=== PATIENT | female | born 1975 | race Caucasian/White ===

== ENCOUNTER → 2018-03-07 09:51 | Outpatient (CLI) | payer OTHER, SELFPAY ==
[2018-03-07 11:42] LABS: Free T4, Direct Thyroxine 1.46 ng/dL (0.78-2.19)
[2018-03-07 11:56] LABS: Thyroid Stimulating Hormone < 0.02 uIU/mL (0.47-4.68)
== END ==
PROVIDERS: Family Provider Family Medicine; PCP Family Medicine; Visit Provider Obstetrics & Gynecology
DX: E03.9 Hypothyroidism, unspecified (principal)
CPT/HCPCS: 36415; 84439; 84443

== ENCOUNTER → 2018-03-16 14:22 | Outpatient (CLI) | payer OTHER, SELFPAY ==
[2018-03-16 15:44] LABS: Cancer Antigen 125 7 U/mL (0-35)
== END ==
PROVIDERS: Family Provider Family Medicine; PCP Family Medicine; Visit Provider Obstetrics & Gynecology
DX: N83.9 Noninflammatory disorder of ovary, fallopian tube and broad ligament, unspecified (principal)
CPT/HCPCS: 36415; 86304

== ENCOUNTER → 2018-04-04 14:46 | Outpatient (CLI) | payer OTHER, SELFPAY ==
--- NOTE | 2018-04-04 14:47 | DI.MG.S_ITS ---
BILATERAL DIGITAL SCREENING MAMMOGRAM 3D/2D WITH CAD: 04/04/2018 CLINICAL: Routine screening. Comparison is made to exams dated: 09/26/2013 mammogram and 09/20/2013 mammogram - [facility]. The tissue of both breasts is extremely dense, which lowers the sensitivity of mammography. Current study was also evaluated with a Computer Aided Detection (CAD) system. No significant masses, calcifications, or other findings are seen in either breast. There has been no significant interval change. IMPRESSION: NEGATIVE There is no mammographic evidence of malignancy. A 1 year screening mammogram is recommended. This exam was interpreted at Station ID: [id number]. NOTE: For mammograms, a report in lay terms will be sent to the patient. Approximately 15% of breast malignancies will not be visualized mammographically. In the management of a palpable breast mass, a negative mammogram must not discourage biopsy of a clinically suspicious lesion. Electronically Signed By: Mehdi urias/imer:04/04/2018 18:43:47 letter sent: Normal Exam ACR BI-RADS Category 1: Negative 3341F
== END ==
PROVIDERS: Family Provider Family Medicine; PCP Family Medicine; Visit Provider Obstetrics & Gynecology
DX: Z12.31 Encounter for screening mammogram for malignant neoplasm of breast (principal)
CPT/HCPCS: 77063; 77067

== ENCOUNTER → 2018-09-22 15:06 | Outpatient (CLI) | payer OTHER, SELFPAY ==
[2018-09-24 13:57] LABS: HSV 1 IgM Screen Negative (Negative); HSV 2 IgM Screen Negative (Negative)
[2018-09-24 14:11] LABS: HSV 2 IGG AB < 0.90 index (< 0.90); HSV1IGG < 0.90 index (< 0.90)
== END ==
PROVIDERS: PCP Family Medicine; Visit Provider Obstetrics & Gynecology
DX: N90.89 Other specified noninflammatory disorders of vulva and perineum (principal)
CPT/HCPCS: 36415; 86695; 86696

== ENCOUNTER → 2018-10-11 15:24 | Outpatient (CLI) | payer OTHER, SELFPAY ==
[2018-10-14 08:32] LABS: HSV 2 IGG AB < 0.90 index (< 0.90)
[2018-10-14 14:53] LABS: HSV 1 IgM Screen Positive (Negative); HSV 2 IgM Screen Positive (Negative)
== END ==
PROVIDERS: PCP Family Medicine; Visit Provider Obstetrics & Gynecology
DX: N90.89 Other specified noninflammatory disorders of vulva and perineum (principal)
CPT/HCPCS: 36415; 86695; 86696

== ENCOUNTER → 2019-05-19 15:06 | Outpatient (CLI) | payer OTHER, SELFPAY ==
--- NOTE | 2019-05-19 | DI.MG.S_ITS ---
BILATERAL DIGITAL SCREENING MAMMOGRAM 3D/2D WITH CAD: 05/19/2019 CLINICAL: Routine screening. Comparison is made to exams dated: 04/04/2018 mammogram, 09/26/2013 mammogram, and 09/20/2013 mammogram - [facility]. The tissue of both breasts is extremely dense, which lowers the sensitivity of mammography. Current study was also evaluated with a Computer Aided Detection (CAD) system. There is a biopsy site marker on the left breast. There is a possible 1 cm oval asymmetry in the right breast middle depth central to the nipple seen on the craniocaudal view only. No other significant masses, calcifications, or other findings are seen in either breast. IMPRESSION: INCOMPLETE: NEEDS ADDITIONAL IMAGING EVALUATION The possible 1 cm asymmetry in the right breast is indeterminate. Additional views with possible ultrasound are recommended. This exam was interpreted at Station ID: [id number]. NOTE: For mammograms, a report in lay terms will be sent to the patient. Approximately 15% of breast malignancies will not be visualized mammographically. In the management of a palpable breast mass, a negative mammogram must not discourage biopsy of a clinically suspicious lesion. Electronically Signed By: Cyrus Madison M.D. aty/:05/19/2019 18:31:21 letter sent: Additional Imaging Needed ACR BI-RADS Category 0: Incomplete 3340F
[2019-05-19 17:29] LABS: Free T4, Direct Thyroxine 1.19 ng/dL (0.78-2.19)
[2019-05-19 17:43] LABS: Thyroid Stimulating Hormone 0.06 uIU/mL (0.47-4.68)
== END ==
PROVIDERS: PCP Family Medicine; Visit Provider Obstetrics & Gynecology
DX: Z12.31 Encounter for screening mammogram for malignant neoplasm of breast (principal); E03.9 Hypothyroidism, unspecified
CPT/HCPCS: 36415; 77063; 77067; 84439; 84443

== ENCOUNTER → 2019-06-08 14:55 | Outpatient (CLI) | payer OTHER, SELFPAY ==
--- NOTE | 2019-06-08 | DI.MG.S_ITS ---
UNILATERAL RIGHT DIGITAL DIAGNOSTIC MAMMOGRAM 3D/2D WITH ADDITIONAL VIEWS: 06/08/2019 CLINICAL: Additional evaluation requested from prior study. Comparison is made to exams dated: 05/19/2019 mammogram, 04/04/2018 mammogram, and 09/20/2013 mammogram - [facility]. The tissue of right breast is extremely dense, which lowers the sensitivity of mammography. There is a 1 cm focal asymmetry in the right breast middle depth central to the nipple seen. This is seen in additional views. No other significant masses or calcifications are seen in the breast. IMPRESSION: INCOMPLETE: NEEDS ADDITIONAL IMAGING EVALUATION The 1 cm focal asymmetry in the right breast is indeterminate. A targeted ultrasound is recommended and will immediately follow. This exam was interpreted at Station ID: [id number]. NOTE: For mammograms, a report in lay terms will be sent to the patient. Approximately 15% of breast malignancies will not be visualized mammographically. In the management of a palpable breast mass, a negative mammogram must not discourage biopsy of a clinically suspicious lesion. Electronically Signed By: Sarkis Little M.D. slc/:06/08/2019 18:31:11 ACR BI-RADS Category 0: Incomplete 3340F
--- NOTE | 2019-06-08 14:57 | DI.US.S_ITS ---
LIMITED ULTRASOUND OF RIGHT BREAST AND AXILLA: 06/08/2019 CLINICAL: Patient returns today to evaluate a focal asymmetry in the right breast. Comparison is made to exams dated: 06/08/2019 mammogram, 05/19/2019 mammogram, and 04/04/2018 mammogram - [facility]. Color flow and real-time ultrasound of the right breast 1 o'clock, and axilla regions were performed. Lamas scale images of the real-time examination were reviewed. There is a 0.4 cm x 1 cm x 0.8 cm oval cyst in the right breast at 1 o'clock middle depth 6 cm from the nipple. This oval cyst displays a well-defined boundary and internal echoes. This likely correlates with mammography findings. Color flow imaging demonstrates that there is no vascularity present. No significant abnormalities were seen sonographically in the right axilla. IMPRESSION: PROBABLY BENIGN The 1 cm oval cyst in the right breast is consistent with a complicated cyst and is probably benign. A follow-up mammogram and an ultrasound in 6 months is recommended to demonstrate stability. Exam findings and recommendation were conveyed to the patient by the Form Grader. This exam was interpreted at Station ID: [id number]. Electronically Signed By: Sarkis Little M.D. [facility]/:06/08/2019 18:42:00 letter sent: Followup Recommended Ultrasound BI-RADS: 3 Probably benign
== END ==
PROVIDERS: PCP Family Medicine; Referring Provider Obstetrics & Gynecology; Visit Provider Obstetrics & Gynecology
DX: R92.8 Other abnormal and inconclusive findings on diagnostic imaging of breast (principal); N60.01 Solitary cyst of right breast
CPT/HCPCS: 76642; 77065; G0279

== ENCOUNTER → 2019-11-22 14:00 | Outpatient (CLI) | payer OTHER, SELFPAY ==
--- NOTE | 2019-12-15 16:26 | PM.CARDMON.1 ---
Office Clerk Assistant Report Referral & Results Date Patient Seen: 11/22/19 Requesting provider: Lewis Emerson Indication: Palpitations Duration of monitoring (days): 7 Diary information: There were 10 patient triggered event and no patient diary entries Patient triggered events (within 45 seconds) were associated with sinus rhythm, PACs, PVCs, and SVT Data: Minimum heart rate identified was 47 beats per minute at 05:11 on 8 520 Maximum heart rate was 187 beats per minute at 07:01 on 11/24/2019 Less than 1% of identified beats were either ventricular or supraventricular ectopic in origin Patient had 1 run of SVT at a rate of 154 beats per minute that was 4 beats in duration Impression: Minor dysrhythmias as above, primarily supraventricular. Clinical correlation suggested
== END ==
PROVIDERS: Family Provider Family Medicine; PCP Family Medicine; Referring Provider Family Medicine; Visit Provider Family Medicine
DX: R00.2 Palpitations (principal)
CPT/HCPCS: 0296T; 0298T

== ENCOUNTER → 2019-11-23 12:46 | Outpatient (CLI) | payer OTHER, SELFPAY ==
--- NOTE | 2019-11-23 12:47 | DI.US.S_ITS ---
LIMITED ULTRASOUND OF RIGHT BREAST: 11/23/2019 CLINICAL: Patient returns for a 6 month follow up of the right breast. Comparison is made to exams dated: 11/23/2019 mammogram, 06/08/2019 ultrasound, 06/08/2019 mammogram, 05/19/2019 mammogram, 04/04/2018 mammogram, and 04/05/2014 [facility]. Color flow ultrasound of the right breast 1 o'clock region was performed. Lamas scale images of the real-time examination were reviewed. There is a 1 cm oval cyst in the right breast at 1 o'clock middle depth. This oval cyst displays a well-defined boundary and internal echoes. This abnormality is not significantly changed. IMPRESSION: PROBABLY BENIGN The 1 cm oval cyst in the right breast is consistent with complicated cysts and is probably benign. A follow-up ultrasound in 6 months is recommended. Findings and recommendations were conveyed to the patient at the time of the exam. A follow-up mammogram and an ultrasound in 6 months is recommended to demonstrate stability. This exam was interpreted at Station ID: [id number]. SUMMARY: Follow-up right breast ultrasound in 6 months is recommended for the complicated cyst in the right breast at 1 o'clock 6 cm from the nipple. At that time, patient will be due for bilateral screening mammograms. Electronically Signed By: Don ch/imer:11/23/2019 13:41:38 letter sent: Followup Recommended Ultrasound BI-RADS: 3 Probably benign
--- NOTE | 2019-11-23 12:47 | DI.MG.S_ITS ---
UNILATERAL RIGHT DIGITAL DIAGNOSTIC MAMMOGRAM 3D/2D SHORT-TERM FOLLOW-UP: 11/23/2019 CLINICAL: Patient returns for a 6 month follow up of the right breast. Comparison is made to exams dated: 06/08/2019 mammogram, 05/19/2019 mammogram, and 04/04/2018 mammogram - [facility]. The tissue of right breast is extremely dense, which lowers the sensitivity of mammography. There is a 1 cm asymmetry in the right breast middle depth central to the nipple seen on the craniocaudal view only. This is less prominent. No other significant masses or calcifications are seen in the breast. IMPRESSION: INCOMPLETE: NEEDS ADDITIONAL IMAGING EVALUATION The 1 cm asymmetry in the right breast is indeterminate. An ultrasound is recommended, which will be performed on the same day immediately following this exam. This exam was interpreted at Station ID: [id number]. NOTE: For mammograms, a report in lay terms will be sent to the patient. Approximately 15% of breast malignancies will not be visualized mammographically. In the management of a palpable breast mass, a negative mammogram must not discourage biopsy of a clinically suspicious lesion. Electronically Signed By: Don Malik M.D. ar/:11/23/2019 13:36:03 ACR BI-RADS Category 0: Incomplete 3340F
== END ==
PROVIDERS: Family Provider Family Medicine; PCP Family Medicine; Referring Provider Obstetrics & Gynecology; Visit Provider Obstetrics & Gynecology
DX: R92.8 Other abnormal and inconclusive findings on diagnostic imaging of breast (principal); N60.01 Solitary cyst of right breast
CPT/HCPCS: 76642; 77065; G0279

== ENCOUNTER → 2020-02-01 13:14 | Outpatient (CLI) | payer OTHER, SELFPAY ==
[2020-02-01 14:22] LABS: Free T4, Direct Thyroxine 1.09 ng/dL (0.78-2.19)
[2020-02-01 14:36] LABS: Thyroid Stimulating Hormone 0.399 uIU/mL (0.47-4.68)
== END ==
PROVIDERS: Family Provider Family Medicine; PCP Family Medicine; Referring Provider Obstetrics & Gynecology; Visit Provider Obstetrics & Gynecology
DX: E03.9 Hypothyroidism, unspecified (principal)
CPT/HCPCS: 36415; 84439; 84443

== ENCOUNTER → 2020-05-24 14:55 | Outpatient (CLI) | payer OTHER, SELFPAY ==
--- NOTE | 2020-05-24 14:56 | DI.US.S_ITS ---
LIMITED ULTRASOUND OF RIGHT BREAST AND AXILLA: 05/24/2020 CLINICAL: 6 month follow-up of cyst right breast . No prior exams were available for comparison. Ultrasound of the right breast 1 o'clock, and axilla regions was performed. There is a 1 cm oval cyst in the right breast at 1 o'clock middle depth. This oval cyst displays a well-defined boundary and internal echoes. This abnormality is not significantly changed. IMPRESSION: PROBABLY BENIGN The 1 cm oval cyst in the right breast is consistent with complicated cysts and is probably benign. A follow-up ultrasound in 6 months is recommended. Findings and recommendations were conveyed to the patient at the time of the exam. A follow-up right ultrasound in 6 months is recommended to demonstrate stability. This exam was interpreted at Station ID: [id number]. Electronically Signed By: Mauro Zarate acr/:06/03/2020 09:14:40 letter sent: Followup Recommended Ultrasound BI-RADS: 3 Probably benign
--- NOTE | 2020-05-24 14:56 | DI.MG.S_ITS ---
BILATERAL DIGITAL DIAGNOSTIC MAMMOGRAM 3D/2D SHORT-TERM FOLLOW-UP: 05/24/2020 CLINICAL: Short term follow up of the right breast, due for bilateral imaging. Comparison is made to exams dated: 11/23/2019 mammogram, 06/08/2019 mammogram, and 05/19/2019 mammogram - [facility]. The tissue of both breasts is extremely dense, which lowers the sensitivity of mammography. The 1 cm asymmetry in the right breast middle depth central to the nipple seen on the craniocaudal view only is no longer seen. No other significant masses, calcifications, or other findings are seen in either breast. IMPRESSION: INCOMPLETE: NEEDS ADDITIONAL IMAGING EVALUATION An ultrasound is recommended to confirm the no longer seen asymmetry in the right breast middle depth central to the nipple seen on the craniocaudal view only. Future imaging is recommended as follows: 11/23/2020 follow-up right ultrasound. This exam was interpreted at Station ID: [id number]. NOTE: For mammograms, a report in lay terms will be sent to the patient. Approximately 15% of breast malignancies will not be visualized mammographically. In the management of a palpable breast mass, a negative mammogram must not discourage biopsy of a clinically suspicious lesion. Electronically Signed By: Mauro Zarate acr/imer:06/05/2020 08:31:47 letter sent: Additional Imaging Needed ACR BI-RADS Category 0: Incomplete 3340F
== END ==
PROVIDERS: Referring Provider Obstetrics & Gynecology; Visit Provider Obstetrics & Gynecology
DX: R92.8 Other abnormal and inconclusive findings on diagnostic imaging of breast (principal); N60.01 Solitary cyst of right breast
CPT/HCPCS: 76642; 77066; G0279

== ENCOUNTER → 2020-07-03 11:12 | Outpatient (CLI) | payer OTHER, SELFPAY ==
[2020-07-03] MEDS: COVID-19 VACC, Ad26(JANSSEN)/PF 0.5 ML IM (11:30)
== END ==
PROVIDERS: Visit Provider Internal Medicine
DX: Z23 Encounter for immunization (principal)
CPT/HCPCS: 0031A; 91303

== ENCOUNTER → 2020-11-14 12:50 | Outpatient (CLI) | payer OTHER, SELFPAY ==
--- NOTE | 2020-11-14 12:51 | DI.US.S_ITS ---
LIMITED ULTRASOUND OF RIGHT BREAST: 11/14/2020 CLINICAL: Patient returns today to evaluate a focal asymmetry in the right breast. Comparison is made to exams dated: 05/24/2020 ultrasound, 05/24/2020 mammogram, 11/23/2019 ultrasound, 11/23/2019 mammogram, 06/08/2019 ultrasound, and 06/08/2019 mammogram - [facility]. Color flow and real-time ultrasound of the right breast 1 o'clock region were performed. Lamsa scale images of the real-time examination were reviewed. There is a 0.6 cm x 0.8 cm x 0.3 cm oval cyst in the right breast at 1 o'clock middle depth 6 cm from the nipple. This oval cyst is hypoechoic. This abnormality is decreased in size. Color flow imaging demonstrates that there is no vascularity present. IMPRESSION: PROBABLY BENIGN The 0.6 cm x 0.8 cm x 0.3 cm oval cyst in the right breast most likely is a complicated cyst, has slightly decompressed, and is probably benign. A follow-up right ultrasound in 6 months is recommended to demonstrate stability. The patient will be due for bilateral mammograms at that same visit. Findings and recommendations were conveyed to the patient at time of exam. This exam was interpreted at Station ID: [id number]. Electronically Signed By: Natividad soria/:11/14/2020 13:24:28 letter sent: Followup Recommended Ultrasound BI-RADS: 3 Probably benign
== END ==
PROVIDERS: Referring Provider Obstetrics & Gynecology; Visit Provider Obstetrics & Gynecology
DX: R92.2 Inconclusive mammogram (principal); N64.89 Other specified disorders of breast; N60.01 Solitary cyst of right breast
CPT/HCPCS: 76642

== ENCOUNTER → 2021-06-12 14:08 | Outpatient (CLI) | payer OTHER, SELFPAY ==
--- NOTE | 2021-06-12 14:10 | DI.US.S_ITS ---
PROCEDURE: US BREAST RT LIMITED COMPARISON: [facility], BREAST RT LIMITED, 11/14/2020, 12:57. INDICATIONS: 6 month F/U R breast cyst FINDINGS: IMPRESSION: Dictated by: Reyes Guallpa M.D. on 06/12/2021 at 16:10 Approved by: Reyes Guallpa M.D. on 06/12/2021 at 16:11
--- NOTE | 2021-06-12 14:10 | DI.MG.S_ITS ---
BILATERAL DIGITAL DIAGNOSTIC MAMMOGRAM 3D/2D SHORT-TERM FOLLOW-UP: 06/12/2021 CLINICAL: Short term follow up of the right breast, due for bilateral imaging. Comparison is made to exams dated: 05/24/2020 mammogram, 11/23/2019 mammogram, 06/08/2019 mammogram, and 05/19/2019 mammogram - [facility]. The tissue of both breasts is extremely dense, which lowers the sensitivity of mammography. The 1 cm asymmetry in the right breast middle depth central to the nipple seen on the craniocaudal view only is no longer seen. No other significant masses, calcifications, or other findings are seen in either breast. IMPRESSION: INCOMPLETE: NEEDS ADDITIONAL IMAGING EVALUATION An ultrasound is recommended to evaluate the previously seem complicated cyst. This exam was interpreted at Station ID: [id number]. NOTE: For mammograms, a report in lay terms will be sent to the patient. Approximately 15% of breast malignancies will not be visualized mammographically. In the management of a palpable breast mass, a negative mammogram must not discourage biopsy of a clinically suspicious lesion. Electronically Signed By: Reyes Guallpa M.D. jr/:06/12/2021 15:50:52 ACR BI-RADS Category 0: Incomplete 3340F
--- NOTE | 2021-06-12 15:34 | DI.US.S_ITS ---
Procedure: US breast RT limited LIMITED ULTRASOUND OF RIGHT BREAST: 06/12/2021 CLINICAL: Patient returns for a 6 month follow up of the right breast. Comparison is made to exams dated: 06/12/2021 mammogram, 11/14/2020 ultrasound, 05/24/2020 ultrasound, 05/24/2020 mammogram, 11/23/2019 ultrasound, and 11/23/2019 mammogram - [facility]. Color flow and real-time ultrasound of the right breast 1 o'clock region were performed. Lamas scale images of the real-time examination were reviewed. There is a benign 0.6 cm x 0.8 cm x 0.3 cm cluster of oval micro cysts in the right breast at 1 o'clock middle depth 6 cm from the nipple. This cluster of oval micro cysts is hypoechoic. These abnormalities are decreased in size. Color flow imaging demonstrates that there is no vascularity present. IMPRESSION: BENIGN There is no sonographic evidence of malignancy. The 0.6 cm x 0.8 cm x 0.3 cm cluster of oval micro cysts in the right breast most likely is a complicated cyst and is benign. A 1 year screening mammogram is recommended. This exam was interpreted at Station ID: [id number]. Electronically Signed By: Reyes Guallpa M.D., jr/imer:06/12/2021 16:11:31 letter sent: Normal Exam Ultrasound BI-RADS: 2 Benign
== END ==
PROVIDERS: PCP Family Medicine; Referring Provider Obstetrics & Gynecology; Visit Provider Obstetrics & Gynecology
DX: N60.01 Solitary cyst of right breast (principal); R92.8 Other abnormal and inconclusive findings on diagnostic imaging of breast
CPT/HCPCS: 76642; 77066; G0279

== ENCOUNTER → 2021-09-23 16:37 | Outpatient (CLI) | payer OTHER, SELFPAY ==
[2021-09-23 19:04] LABS: Cancer Antigen 125 8.8 U/mL (0-35)
== END ==
PROVIDERS: PCP Family Medicine; Referring Provider Obstetrics & Gynecology; Visit Provider Obstetrics & Gynecology
DX: N83.201 Unspecified ovarian cyst, right side (principal)
CPT/HCPCS: 36415; 86304

== ENCOUNTER → 2021-11-14 10:44 | Outpatient (CLI) | payer OTHER, SELFPAY ==
--- NOTE | 2021-11-14 10:46 | DI.US.S_ITS ---
LIMITED ULTRASOUND OF RIGHT BREAST: 11/14/2021 CLINICAL: Palpable right breast lump. No prior exams were available for comparison. Real-time ultrasound of the right breast 1 o'clock region was performed on the areas of interest. Lamas scale images of the real-time examination were reviewed. IMPRESSION: INCOMPLETE: NEEDS ADDITIONAL IMAGING EVALUATION There is no mammographic or sonographic abnormality seen in the right breast to correspond with the palpable abnormality, however, given patient's increased lifetime risk for breast cancer, breast MRI is recommended. This exam was interpreted at Station ID: [id number]. Electronically Signed By: Shelly moss/:11/14/2021 11:26:42 letter sent: Additional Imaging Needed Ultrasound BI-RADS: 0 Indeterminate
--- NOTE | 2021-11-14 10:46 | DI.MG.S_ITS ---
UNILATERAL RIGHT DIGITAL DIAGNOSTIC MAMMOGRAM 3D/2D: 11/14/2021 CLINICAL: Right lump. Comparison is made to exams dated: 06/12/2021 ultrasound, 06/12/2021 mammogram, 11/14/2020 ultrasound, 05/24/2020 ultrasound, and 05/24/2020 mammogram - [facility]. The tissue of right breast is extremely dense, which lowers the sensitivity of mammography. No significant masses, calcifications, or other findings are seen in the breast. IMPRESSION: INCOMPLETE: NEEDS ADDITIONAL IMAGING EVALUATION There is no mammographic abnormality seen in the right breast to correspond with the palpable abnormality, however, targeted ultrasound of the right breast is recommended and will be performed immediately following this exam. Based on Tyrer-Cuzick model (a risk assessment model), the patient's lifetime risk is 33.0% and her 10 year risk is 6.3%. If a patient has an elevated risk, a more comprehensive evaluation should be considered and/or a referral to a genetic counselor. The [place] [employer], [employer] [employer], and NCCN Guidelines advise the consideration of Breast MRI as an adjunct to screening mammography in patients whose Lifetime risk to develop breast cancer is 20% or higher. This exam was interpreted at Station ID: [id number]. NOTE: For mammograms, a report in lay terms will be sent to the patient. Approximately 15% of breast malignancies will not be visualized mammographically. In the management of a palpable breast mass, a negative mammogram must not discourage biopsy of a clinically suspicious lesion. Electronically Signed By: Shelly Carranza M.D. lk/:11/14/2021 11:10:46 ACR BI-RADS Category 0: Incomplete 3340F
== END ==
PROVIDERS: PCP Family Medicine; Referring Provider Physician Assistant Medical; Visit Provider Physician Assistant Medical
DX: N63.12 Unspecified lump in the right breast, upper inner quadrant (principal); R92.2 Inconclusive mammogram
CPT/HCPCS: 76642; 77065; G0279

== ENCOUNTER → 2021-11-24 12:43 | Outpatient (CLI) | payer OTHER, SELFPAY ==
--- NOTE | 2021-11-24 13:20 | DI.MRI.S_ITS ---
BREAST MRI OF BOTH BREASTS: 11/24/2021 CLINICAL: Right breast lump, deense breast tissue. The patient was placed prone in a dedicated breast imaging coil. Precontrast axial STIR and 3D FLASH without fat saturation sequences were obtained. Both before and after bolus injection of contrast, sequential 1-minute axial 3D FLASH with fat saturation sequences for 3 time points, with subtraction images and maximum intensity projections (MIP's) generated. Delayed sagittal FLASH images with fat saturation were also obtained. Computer-aided detection, including computer algorithm analysis of MRI image data for lesion detection and characterization, pharmacokinetic analysis, with further physician review for interpretation, was performed. Correlation with prior breast ultrasound and mammography studies. Breast tissue is extremely dense. There is marked background parenchymal enhancement which is bilaterally symmetric and predominantly peripheral with the bulk of the most strongly enhancing breast tissue being in the upper outer and lower outer quadrants. There are innumerable scattered foci in both breasts measuring up to 5-6 mm. In the upper outer quadrants of both breasts there are numerous clustered simple and minimally complicated cysts. There is no suspicious enhancing mass or non mass enhancement. There is no evidence of architectural distortion. In the upper outer quadrant right breast at approximately the 1 o'clock position there is a 1.0 x 1.2 cm focus of enhancement which is slightly more pronounced than background. This is not discretely masslike with concave and ill-defined borders. There are numerous lesions which appear similar, none being overtly suspicious. Nonetheless, this lesion is potentially in the area of reportedly palpable concern (unfortunately no oil marker was placed by the technologist to denote the specific palpable area of concern). There is no lymphadenopathy in the axillary or internal mammary stations. IMPRESSION: PROBABLY BENIGN Focus of prominent but not overtly suspicious enhancement in the upper outer quadrant right breast, corresponding in general location to the 1:00 a.m. Area of interest (unfortunately an oil marker was not placed to denote the specific area of palpable concern). No corresponding abnormality was seen on the proceeding ultrasound or mammogram. Recommendation is for a six-month follow-up MRI to document stability. The patient will be due for bilateral screening mammography at that time (06/13/2022). In lieu of short interval follow-up, an MRI biopsy could be performed if warranted/preferred based on clinical aspects of the case. COMMENT: The imaging literature indicates that a negative contrast breast MRI examination has a high sensitivity and a moderate specificity for detecting and excluding invasive carcinomas to a detection threshold of 3-5 mm; nonetheless, appropriate clinical and mammographic follow-up are recommended. MRI is not sensitive for detecting DCIS (ductal carcinoma in situ) and may not detect large invasive neoplasms that show only minimal enhancement such as mucinous carcinoma. If there are suspicious calcifications or clinically worrisome palpable masses, then biopsy should still be considered. Invasive neoplasms can be hidden by co-existent and benign enhancement caused by mastitis, hormone therapy effects, radiation therapy, , and recent biopsy or surgery. False positive examinations can occur in a number of circumstances, including breasts that have recently been subject to invasive procedures and those that contain atypical ductal hyperplasia, hormonally stimulated glandular tissue, fat necrosis, or radial scars. This exam was interpreted at Station ID: [id number]. Electronically Signed By: Reyes Guallpa M.D. jr/:11/25/2021 20:24:56 letter sent: Followup Recommended ACR BI-RADS Category 3: Probably benign 3343F
== END ==
PROVIDERS: PCP Family Medicine; Referring Provider Physician Assistant Medical; Visit Provider Physician Assistant Medical
DX: N63.12 Unspecified lump in the right breast, upper inner quadrant (principal); N60.01 Solitary cyst of right breast; N60.02 Solitary cyst of left breast
CPT/HCPCS: 77049; A9579

== ENCOUNTER → 2021-12-10 15:17 | Outpatient (CLI) | payer OTHER, SELFPAY ==
--- NOTE | 2021-12-10 15:18 | DI.US.S_ITS ---
ULTRASOUND OF RIGHT BREAST: 12/10/2021 CLINICAL: Palpable right breast lump. Comparison is made to exams dated: 11/24/2021 breast MRI, 11/14/2021 ultrasound, 11/14/2021 mammogram, 06/12/2021 ultrasound, and 06/12/2021 mammogram - [facility]. Color flow and real-time ultrasound of the right breast were performed. Lamas scale images of the real-time examination were reviewed. At the 1:00 area of reportedly palpable concern, there is a focus of dense breast tissue measuring 1.0 x 1.2 cm which is mildly hypoechoic with normal vascularity and intervening normal fat. No mass or suspicious abnormality seen sonographically in the right breast. IMPRESSION: NEGATIVE There is no sonographic evidence of malignancy. Palpable abnormality likely corresponds to a small area of focally dense breast tissue. This exam was interpreted at Station ID: [id number]. Electronically Signed By: Reyes Guallpa M.D. jr/:12/10/2021 15:57:30 letter sent: Normal Exam Ultrasound BI-RADS: 1 Negative
== END ==
PROVIDERS: PCP Family Medicine; Referring Provider Surgery; Visit Provider Surgery
DX: N63.12 Unspecified lump in the right breast, upper inner quadrant (principal)
CPT/HCPCS: 76642

== ENCOUNTER → 2021-12-23 14:19 | Outpatient (CLI) | payer OTHER, SELFPAY ==
[2021-12-23 17:43] LABS: Cancer Antigen 125 6.7 U/mL (0-35)
== END ==
PROVIDERS: PCP Family Medicine; Referring Provider Obstetrics & Gynecology; Visit Provider Obstetrics & Gynecology
DX: N83.292 Other ovarian cyst, left side (principal)
CPT/HCPCS: 36415; 86304

== ENCOUNTER → 2022-07-07 15:23 | Outpatient (CLI) | payer OTHER, SELFPAY ==
[2022-07-07 23:43] LABS: T4 Total Thyroxine 8.98 ug/dL (5.5-11.0)
[2022-07-07 23:56] LABS: Thyroid Stimulating Hormone 0.241 uIU/mL (0.47-4.68)
== END ==
PROVIDERS: PCP Family Medicine; Referring Provider Obstetrics & Gynecology; Visit Provider Obstetrics & Gynecology
DX: E03.9 Hypothyroidism, unspecified (principal)
CPT/HCPCS: 36415; 84436; 84443

== ENCOUNTER → 2022-07-16 15:42 | Outpatient (CLI) | payer OTHER, SELFPAY ==
--- NOTE | 2022-07-16 15:43 | DI.US.S_ITS ---
PROCEDURE: US PELVIC COMPLETE INDICATIONS: FOLLOW UP RIGHT OVARIAN CYST TECHNIQUE: Real-time scanning was performed of the pelvic organs, with image documentation. Additional endovaginal scanning was necessary due to incomplete visualization of the adnexal and endometrial structures by transabdominal scanning. COMPARISON: [facility], US, US PELVIC COMPLETE, 04/16/2022, 13:32. FINDINGS: Uterus: Uterus is anteverted and normal in size at 7.2 x 3.4 x 5.5 cm. The myometrium is heterogeneous. The endometrium measures 3 mm combined thickness. IUD within the central endometrium. 2.4 centimeters subserosal fibroid along the anterior margin. Ovaries: The right ovary measures 5.7 x 3.1 x 4.3 cm, with a calculated ovarian volume of 40 cc. The left ovary measures 2.5 x 1.9 x 2.8 cm, with a calculated ovarian volume of 7.1 cc. Unchanged appearance of the pair right ovarian cysts, without suspicious features. Less than 12 follicles can be seen in each ovary. No adnexal masses are seen. Other: No pathologic free abdominal or pelvic fluid. IMPRESSION: Stable appearance of the non complex anechoic right ovarian cystic lesions without suspicious features. We strive to produce accurate, complete, and clear reports of imaging services. To assist us in improving patient care, this report was composed using standard report templates and voice recognition software. Therefore, it may contain abnormal punctuation, insertions and/or omissions. Occasional wrong-word or sound-alike substitutions may occur. Though we review the report and make efforts to correct it, we do recommend that the report be read carefully in proper context to recognize any text inaccuracies. Dictated by: Wilian Malhotra M.D. on 07/16/2022 at 17:19 Approved by: Wilian Malhotra M.D. on 07/16/2022 at 17:23
== END ==
PROVIDERS: PCP Family Medicine; Referring Provider Obstetrics & Gynecology; Visit Provider Obstetrics & Gynecology
DX: N83.291 Other ovarian cyst, right side (principal)
CPT/HCPCS: 76830; 76856; 93975

== ENCOUNTER → 2022-09-14 09:23 | Outpatient (CLI) | payer OTHER, SELFPAY ==
--- NOTE | 2022-09-14 09:24 | DI.MG.S_ITS ---
BILATERAL DIGITAL DIAGNOSTIC MAMMOGRAM 3D/2D: 09/14/2022 CLINICAL: Short term follow up from MRI; Due Bilateral. Comparison is made to exams dated: 12/10/2021 ultrasound, 11/24/2021 breast MRI, 11/14/2021 ultrasound, 11/14/2021 mammogram, and 06/12/2021 mammogram - [facility]. Both breasts are extremely dense, which lowers the sensitivity of mammography (category d />75% glandular tissue). There are grouped heterogeneous calcifications in the right breast at 12 o'clock posterior depth. No other significant masses, calcifications, or other findings are seen in either breast. IMPRESSION: SUSPICIOUS OF MALIGNANCY The heterogeneous calcifications in the right breast are at a moderate suspicion for malignancy. A stereotactic biopsy is recommended. The patient is also due for a follow-up breast MRI. Based on Tyrer-Cuzick model (a risk assessment model), the patient's lifetime risk is 33.0% and her 10 year risk is 6.7%. If a patient has an elevated risk, a more comprehensive evaluation should be considered and/or a referral to a genetic counselor. The [employer] [employer], [employer], and NCCN Guidelines advise the consideration of Breast MRI as an adjunct to screening mammography in patients whose Lifetime risk to develop breast cancer is 20% or higher. This exam was interpreted at Station ID: [id number]. NOTE: For mammograms, a report in lay terms will be sent to the patient. Approximately 15% of breast malignancies will not be visualized mammographically. In the management of a palpable breast mass, a negative mammogram must not discourage biopsy of a clinically suspicious lesion. Electronically Signed By: Shelly moss/:09/14/2022 10:23:14 letter sent: Biopsy Required ACR BI-RADS Category 4b: Suspicious abnormality - intermediate suspicion of malignancy 3344F
== END ==
PROVIDERS: PCP Family Medicine; Referring Provider Obstetrics & Gynecology; Visit Provider Obstetrics & Gynecology
DX: R92.8 Other abnormal and inconclusive findings on diagnostic imaging of breast (principal); N63.14 Unspecified lump in the right breast, lower inner quadrant; R92.1 Mammographic calcification found on diagnostic imaging of breast
CPT/HCPCS: 77066; G0279

== ENCOUNTER → 2022-10-12 14:01 | Outpatient (CLI) | payer OTHER, SELFPAY ==
[2022-10-12 17:26] LABS: Cancer Antigen 125 7.4 U/mL (0-35)
== END ==
PROVIDERS: PCP Family Medicine; Referring Provider Obstetrics & Gynecology; Visit Provider Obstetrics & Gynecology
DX: N83.291 Other ovarian cyst, right side (principal)
CPT/HCPCS: 36415; 86304

== ENCOUNTER → 2023-04-16 08:13 | Outpatient (CLI) | payer OTHER, SELFPAY ==
--- NOTE | 2023-04-16 08:14 | DI.MRI.S_ITS ---
BREAST MRI OF BOTH BREASTS: 04/16/2023 CLINICAL: 6 month follow up on stereotatic biopsy. PROCEDURE: MR BREAST BI WO/W CON INDICATIONS: Dense breast tissue TECHNIQUE: The patient was placed prone in a dedicated breast imaging coil. Precontrast axial STIR and 3D FLASH without fat saturation sequences were obtained. Both before and after bolus injection of contrast, sequential 1-minute axial 3D FLASH with fat saturation sequences for 3 time points, with subtraction images and maximum intensity projections (MIP's) generated. Delayed sagittal FLASH images with fat saturation were also obtained. Computer-aided detection, including computer algorithm analysis of MRI image data for lesion detection and characterization, pharmacokinetic analysis, with further physician review for interpretation, was performed. COMPARISON: [facility], , MM DIAGNOSTIC MAMMO UNILAT RT, 11/14/2021, 10:59. [facility], MG, MG DIGITAL BREAST TOMOSYNTHESIS BREAST BIOPSY RIGHT, 09/24/2022, 9:28. [facility], MG, MG BREAST SPECIMEN RIGHT, 09/24/2022, 9:38. [facility], , MR BREAST BI WO/W CON, 11/24/2021, 13:04. FINDINGS: Image quality: Excellent. There is marked background parenchymal enhancement. Breast tissue is extremely dense. Right breast: The breast demonstrates heterogenous uptake throughout the breast with no focal masslike areas of enhancement. The area of increased enhancement compared to background at the 1:00 position on the prior study dated 11/24/2021 is no longer visualized. The overall pattern of enhancement is unchanged. Dynamic images demonstrate benign kinetics throughout the breast. Innumerable cysts are present measuring up to 0.8 cm. No architectural distortion. No adenopathy in the axilla or internal mammary stations. Left breast: The breast demonstrates heterogenous uptake throughout the breast with no focal masslike areas of enhancement. The overall pattern of enhancement is unchanged. Dynamic images demonstrate benign kinetics throughout the breast. Innumerable cysts are present measuring up to 1.2 cm. No architectural distortion. No adenopathy in the axilla or internal mammary stations. IMPRESSION: BENIGN Extremely dense breasts with marked background enhancement and multiple simple cysts. Return to annual mammogram screening schedule is recommended. This exam was interpreted at Station ID: [id number]. Electronically Signed By: Mauro Zarate M.D. acr/:04/16/2023 16:44:40 Entry: aa - 04/20/2023 11:38:27 ACR BI-RADS Category 2: Benign Finding(s) 3342F
== END ==
PROVIDERS: PCP Family Medicine; Referring Provider Obstetrics & Gynecology; Visit Provider Obstetrics & Gynecology
DX: N63.14 Unspecified lump in the right breast, lower inner quadrant (principal); N60.01 Solitary cyst of right breast; N60.02 Solitary cyst of left breast; R92.333 Mammographic heterogeneous density, bilateral breasts
CPT/HCPCS: 77049; A9579

== ENCOUNTER → 2023-08-06 16:55 | Outpatient (CLI) | payer OTHER, SELFPAY ==
[2023-08-06 18:42] LABS: Thyroid Stimulating Hormone 0.621 uIU/mL (0.47-4.68)
== END ==
LOC: LAB 16:58
PROVIDERS: PCP Family Medicine; Referring Provider Obstetrics & Gynecology; Visit Provider Obstetrics & Gynecology
DX: E03.9 Hypothyroidism, unspecified (principal)
CPT/HCPCS: 36415; 84439; 84443

== ENCOUNTER → 2023-09-27 11:44 | Outpatient (CLI) | payer OTHER, SELFPAY ==
--- NOTE | 2023-09-27 11:45 | DI.MG.S_ITS ---
BILATERAL DIGITAL SCREENING MAMMOGRAM 3D/2D WITH CAD: 09/27/2023 CLINICAL: Routine screening. Family history of breast cancer. Comparison is made to exams dated: 04/16/2023 breast MRI, 11/24/2021 breast MRI, 06/12/2021 mammogram, 05/24/2020 mammogram, and 09/14/2022 mammogram - [facility]. Both breasts are extremely dense, which lowers the sensitivity of mammography (category d />75% glandular tissue). Current study was also evaluated with a Computer Aided Detection (CAD) system. There are benign calcifications in both breasts. There also is a biopsy clip in both breasts. No significant masses, calcifications, or other findings are seen in either breast. There has been no significant interval change. IMPRESSION: BENIGN There is no mammographic evidence of malignancy. A 1 year screening mammogram is recommended. Based on Tyrer-Cuzick model (a risk assessment model), the patient's lifetime risk is 33.1% and her 10 year risk is 7.1%. If a patient has an elevated risk, a more comprehensive evaluation should be considered and/or a referral to a genetic counselor. The [employer], [employer], and NCCN Guidelines advise the consideration of Breast MRI as an adjunct to screening mammography in patients whose Lifetime risk to develop breast cancer is 20% or higher. This exam was interpreted at Station ID: [id number]. NOTE: For mammograms, a report in lay terms will be sent to the patient. Approximately 15% of breast malignancies will not be visualized mammographically. In the management of a palpable breast mass, a negative mammogram must not discourage biopsy of a clinically suspicious lesion. Electronically Signed By: Natividad soria/imer:09/27/2023 17:11:06 letter sent: Normal Exam ACR BI-RADS Category 2: Benign Finding(s) 3342F
== END ==
PROVIDERS: PCP Family Medicine; Referring Provider Obstetrics & Gynecology; Visit Provider Obstetrics & Gynecology
DX: Z12.31 Encounter for screening mammogram for malignant neoplasm of breast (principal); Z80.3 Family history of malignant neoplasm of breast; R92.343 Mammographic extreme density, bilateral breasts
CPT/HCPCS: 77063; 77067

== ENCOUNTER → 2023-09-28 15:08 | Outpatient (CLI) | payer OTHER, SELFPAY ==
[2023-09-28 16:59] LABS: Cancer Antigen 125 10.2 U/mL (0-35)
[2023-09-28 17:03] LABS: Follicle Stimulating Hormone 3.37 mIU/mL
== END ==
PROVIDERS: PCP Family Medicine; Referring Provider Obstetrics & Gynecology; Visit Provider Obstetrics & Gynecology
DX: N83.201 Unspecified ovarian cyst, right side (principal); N95.1 Menopausal and female climacteric states; N83.202 Unspecified ovarian cyst, left side
CPT/HCPCS: 36415; 83001; 86304

== ENCOUNTER 2023-12-24 13:58 | Day surgery (SDC) | payer OTHER, SELFPAY ==
[2023-12-22 15:30] VITALS: BMI 21.5
--- NOTE | 2023-12-24 | PATH_ITS ---
[facility] Accession Number: [id number] No. of containers..01 Tissue . 01 Material submitted: . breast - LEFT BREAST MASS . 01 Diagnosis: LEFT BREAST MASS, LUMPECTOMY: Focal atypical lobular hyperplasia (ALH). Duct ectasia with features of rupture. Background breast parenchyma with features of fibrocystic change consisting of cystic dilatation of terminal ductules, apocrine metaplasia, adenosis, usual ductal hyperplasia, and stromal fibrosis. 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 Rare microcalcifications are present and are associated with benign epithelium. [facility] 12/31/2023 1353 Local . 01 Comment: As part of routine it quality analyst, this case was also reviewed by Drs. French and Williams, who agree with the interpretation. . Dr. Franco discussed results with Dr. Mavis Wyman's nurse, on 12-31-23 at approximately 1:41 p.m. . 01 Electronically signed: . Tatiana Franco MD, Pathologist NPI- [id number] . 01 Gross description: . Received in formalin, labeled with two identifiers and left breast mass. . Specimen: Oriented, previously inked left lumpectomy. Weight: 11 g. Measurement: 3.5 cm anterior to posterior, 3.7 cm medial to lateral, 1.9 cm superior to inferior. Skin ellipse: Absent. Margins: Inked by the surgeon as follows: Anterior green, inferior blue, lateral orange, medial yellow, posterior black, superior red. Inking reinforced at the bench. Sliced: From anterior to posterior into seven slices. Lesion: Description: A smooth-walled cystic structure filled with choe serous fluid. Size: 0.7 x 0.7 x 0.6 cm. Slices involved: Slices 4-6. Biopsy site: Absent. Distance to margins: 0.3 cm from the nearest yellow margin, 0.4 cm from the blue margin, 0.4 cm from the red margin, and widely free from all remaining margins. Other: The remaining cut surfaces are dense, rubbery, white, fibrous tissue with no adipose or additional lesions grossly identified. Fixation: The specimen was removed on 12/24/2023, time not provided, cold ischemic time cannot be calculated. Total fixation time is approximately 71 hours. . The specimen is submitted entirely as follows: A1-A2: Slice one perpendicular. A3: Slice two. A4: Slice three. A5: Slice four. A6: Slice five. A7: Slice six. A8-A9: Slice seven perpendicular. (:[id number]) /[facility] 12/25/2023 1251 Local . 01 Microscopic: . Immunostains were performed to evaluate features; the control slides stained appropriately. . Block A2 CD34: Patchy increased staining, supports an interpretation of pseudoangiomatous stromal hyperplasia (PASH) in this biopsy. . Blocks A7 and A8 E-cadherin: Patchy diminished staining at foci of interest, supports an interpretation of atypical lobular hyperplasia / ALH. . . * This test was developed and its performance characteristics determined by [facility]. It has not been cleared or approved by the U.S. Food and Drug Administration. The FDA has determined that such clearance or approval is not necessary. This test is used for clinical purposes. It should not be regarded as investigational or for research. . 01 Pathologist provided ICD-10: N60.12, D24.2 . 01 CPT . 400305, L61139, Y34810 Specimen Comment: A courtesy copy of this report has been sent to [phone] Performed at: 01 [facility] [address], [place], [place] [id number] MD Frank Pittman MD Phone: [phone]
[2023-12-24 14:19] VITALS: BP 101/66; PULSE 63; RESP 16; TEMP 37.1; O2SAT 98; BMI 20.7
[2023-12-24] MEDS: LACTATED RINGERS 1,000 ML 42 ML IV (14:37)
--- NOTE | 2023-12-24 15:37 | PM.PREOP ---
Pre-operative Note Interval Note History & Physical reviewed/Exam performed by Physician: Yes Changes to H&P: No
--- NOTE | 2023-12-24 16:20 | SUR.OPER ---
Supine on padded OR bed, head on pillow, arms secured on padded arm boards at <90 degrees abduction, legs uncrossed, safety belt at thigh, tape over blanket over lower legs.
[2023-12-24] MEDS: CEFAZOLIN 2 GM/100 ML PREMIX 100 ML IV (16:25)
[2023-12-24] MEDS: BUPIVACAINE 0.25% (PF) VIAL 30 ML INJ (16:32)
[2023-12-24 17:13] VITALS: BP 114/68; PULSE 87; RESP 17; TEMP 36.1; O2SAT 100
[2023-12-24 17:20] VITALS: BP 109/68; PULSE 75; RESP 16; O2SAT 100
--- NOTE | 2023-12-24 17:21 | PM.OP.1 ---
Operative Date/Time/Diagnoses Date of procedure: 12/24/23 Time of procedure: 17:21 Pre-op diagnosis: Left breast mass Post-op diagnosis: same Procedure & Clinicians Procedure: Left lumpectomy Same procedure as scheduled: Yes Indications: 48-year-old woman with a clearly palpable left breast mass of the upper outer quadrant. Radiographic findings are unable to demonstrate mass in here she is here for excisional biopsy/lumpectomy. Surgeon: Jermain Gamble Click Yes if Unassisted: Yes Anesthesia Type: General Operative Notes Findings: 4cm mass what appears to be fibrocystic disease. Beyond this somewhat distinct mass there was additional fibrocystic disease which was not removed. Specimen(s): other (Left breast mass) Estimated Blood Loss (mL): 10 Procedure in detail: Patient was brought to the operating room placed supine on the table. Bilateral lower extremity compression devices were applied. General anesthesia was induced she was intubated with an LMA. She received 2 g of Ancef prior to skin incision. She was prepped and draped in sterile fashion and time-out was performed. The left breast mass was clearly palpable in the upper outer quadrant. A curvilinear incision in the upper outer quadrant was made with a knife in the subcutaneous tissue was divided. We encountered 3-4 cm firm mass. Mass was consistent with fibrotic cystic tissue and was excised from surrounding tissue. There is additional fibrocystic disease beyond here which was not removed. A surgical clip was placed in the wound bed. Hemostasis was achieved. The mass was passed off the field labeled left breast mass and painted in standard fashion as below. The wound was closed with Vicryl followed by Monocryl in the application of Dermabond. The sponge and instrument count of the end of the operation was correct x2. She was extubated transferred to recovery in stable condition. Anterior Green Inferior Blue Lateral [place] Medial Yellow Posterior Black Superior Red Complications: none Post-operative Condition: stable Disposition: same day surgery
[2023-12-24 17:25] VITALS: BP 117/69; PULSE 74; RESP 16; O2SAT 99
[2023-12-24 17:28] VITALS: BP 114/68; PULSE 79; RESP 18; TEMP 36.1; O2SAT 100
[2023-12-24 17:30] VITALS: BP 109/63; PULSE 74; RESP 18; O2SAT 100
--- NOTE | 2023-12-24 17:50 | SUR.PHASEI ---
pt given cepacol throat lozenger while in pacu, unable to chart do to anesthsia having computer locked , pharmacy called and they okd to put in note as pt is allready discharged
== END 2023-12-24 17:53 | disposition home or self-care (01) ==
PROVIDERS: PCP Family Medicine; Referring Provider Surgery; Visit Provider Surgery
PROC: (CPT 19120; principal; 2023-12-24 15:45)
DX: D24.2 Benign neoplasm of left breast (principal); N60.12 Diffuse cystic mastopathy of left breast
CPT/HCPCS: 19120; J0690; J1100; J1885; J2250; J2405; J2704; J3010

== ENCOUNTER → 2024-06-05 16:09 | Outpatient (CLI) | payer OTHER, SELFPAY ==
[2024-06-05 18:10] LABS: Cancer Antigen 125 9.7 U/mL (0-35)
== END ==
PROVIDERS: PCP Family Medicine; Referring Provider Obstetrics & Gynecology; Visit Provider Obstetrics & Gynecology
DX: N83.201 Unspecified ovarian cyst, right side (principal); N83.202 Unspecified ovarian cyst, left side
CPT/HCPCS: 36415; 86304

== ENCOUNTER → 2024-07-18 16:40 | Outpatient (CLI) | payer OTHER, SELFPAY ==
[2024-07-18 18:06] LABS: Add Manual Diff / Slide Review NO; Basophils Absolute Auto 100 /uL (0-100); Basophils Percent Auto 0.7 % (0-2); Eosinophils Absolute Auto 200 /uL (0-450); Hematocrit 37.9 % (36-46); Hemoglobin 12.8 g/dL (12.0-16.0); Lymphocytes Absolute Auto 2300 /uL (1100-4500); Lymphocytes Percent Auto 24.9 % (25-40); Mean Corpuscular HGB Conc 33.7 % (30-36); Mean Corpuscular Hemoglobin 32.6 PG (26-34); Mean Corpuscular Volume 96.5 fL (80-100); Monocytes Absolute Auto 900 /uL (0-900); Monocytes Percent Auto 9.5 % (3-14); Neutrophils Absolute Auto 5700 /uL (1500-7000); Neutrophils Percent Auto 62.9 % (50-75); Platelet Count 235 X10^3/uL (150-400); Red Blood Cell Count 3.93 X10^6/uL (4.0-5.2); Red Cell Distribution Width 12.9 % (11.6-14.8); White Blood Cell Count 9.1 X10^3/uL (4.5-11.0)
[2024-07-18 18:24] LABS: Alanine Aminotransferase 26 IU/L (<35); Albumin 4.1 g/dL (3.5-5.0); Albumin Globulin Ratio 1.5 (1.0-2.8); Alkaline Phosphatase 64 U/L (38-126); Aspartate Aminotransferase 40 IU/L (14-36); BUN Creatinine Ratio 18.5 (6-22); Bilirubin Total 0.3 mg/dL (0.2-1.3); Blood Urea Nitrogen 12 mg/dL (7-17); Calcium 8.9 mg/dL (8.4-10.2); Carbon Dioxide 21 mmol/L (22-32); Chloride 104 mmol/L (98-107); Estimated Glomerular Filt Rate > 60 mL/min (>60); Globulin 2.7 g/dL (1.7-4.1); Glucose 113 mg/dL (70-100); HEMOLYSIS < 15 (0-50); Potassium 3.9 mmol/L (3.4-5.1); Sodium 135 mmol/L (137-145); Total Protein 6.8 g/dL (6.3-8.2)
[2024-07-18 18:55] LABS: TSH w/ Reflex to FT4 1.16 uIU/mL (0.47-4.68)
== END ==
PROVIDERS: PCP Family Medicine; Referring Provider Family Medicine; Visit Provider Family Medicine
DX: N93.9 Abnormal uterine and vaginal bleeding, unspecified (principal); N95.1 Menopausal and female climacteric states; E03.9 Hypothyroidism, unspecified
CPT/HCPCS: 36415; 80053; 84443; 85025

== ENCOUNTER → 2024-07-31 08:03 | Outpatient (CLI) | payer OTHER, SELFPAY ==
[2024-07-31 09:37] LABS: Follicle Stimulating Hormone 3.02 mIU/mL; Vitamin D 25 Hydroxy (D3) 55.5 ng/mL (30.0-100.0)
[2024-07-31 09:58] LABS: Ferritin 165 ng/mL (6-137)
[2024-08-01 07:09] LABS: Dehydroepiandrosterone Sulfate 85.5 ug/dL (41.2-243.7)
[2024-08-11 08:41] LABS: Testosterone Free 0.31 ng/dL (0.10-0.85); Testosterone Total 16.2 ng/dL (.)
== END ==
PROVIDERS: PCP Family Medicine; Referring Provider Family Medicine; Visit Provider Family Medicine
DX: R53.82 Chronic fatigue, unspecified (principal); R46.89 Other symptoms and signs involving appearance and behavior; E55.9 Vitamin D deficiency, unspecified; N95.1 Menopausal and female climacteric states; R53.83 Other fatigue
CPT/HCPCS: 36415; 82306; 82627; 82728; 83001; 84402; 84403

== ENCOUNTER 2024-09-08 08:30 | Day surgery (SDC) | payer OTHER, SELFPAY ==
[2024-09-01 09:17] VITALS: BMI 22.4
[2024-09-08] VITALS (9 sets, daily range): BP systolic 96–118; BP diastolic 56–72; PULSE 61–87; RESP 11–17; TEMP 36.3–36.6; O2SAT 99–100; BMI 22.4
--- NOTE | 2024-09-08 | PATH_ITS ---
[facility] Accession Number: [id number] No. of containers..02 Tissue . 01 Material submitted: . PART A: ovary - BILATERAL FALLOPIAN TUBES AND RIGHT OVARY PART B: cervix - CERVIX 12 O'CLOCK . 01 Clinical history: . B) STITCH POSITION . 01 Diagnosis: A. BILATERAL FALLOPIAN TUBES AND RIGHT OVARY, BILATERAL SALPINGECTOMY AND RIGHT OOPHORECTOMY: Ovary with benign hemorrhagic corpus luteum cysts and serous cystadenomas. Histologically unremarkable bilateral fibriated fallopian tubes. Negative for malignancy. . B. CERVIX, LEEP: Focal high-grade squamous intraepithelial lesion (DUNIA 2-3). Background low-grade squamous intraepithelial lesion (DUNIA 1) also present. Inked margins free of high-grade lesion. Negative for invasive carcinoma. [facility] 09/15/2024 1247 Local . 01 Comment: Part B: There is a focus of extremely attenuated atypical epithelium present at the inked endocervical margin, darkly staining for p16 by immunohistochemistry. Due to the significant attenuation, it cannot be said with certainty if this represents a true high-grade lesion involving the endocervical margin, or if this is artifactually thinned and would not meet diagnostic criteria for a true positive p16 result or show definitive characteristics of high-grade morphology if the full thickness was present. Elsewhere in the specimen,low-grade lesion is present on the endocervical margin. The stromal margin is free from involvement by low and high grade lesion. . 01 Electronically signed: . Karen Robins DO, Pathologist NPI- [id number] . 01 Gross description: . A. Received in formalin with two identifiers and bilateral fallopian tubes, R. ovary (difficult to read), is a presumed left fallopian tube (5.2 x 0.6 cm) and presumed right tubo-ovarian unit (fallopian tube 5.4 x 0.6 cm, ovary 19 grams, 4.5 x 3.9 x 2.9 cm). . Both tubes have violaceous, smooth serosa with no cysts identified and the lumen are stellate and unremarkable. The ovary has a choe to violaceous, distended external surface with two pale-choe spherical nodules located adjacent to the vessels both measuring 0.2 x 0.2 x 0.2 cm. The external surface of the ovary is inked blue. Sectioning reveals multiple simple thin smooth-walled cysts up to 2.5 cm in greatest dimension filled with choe serous fluid. No excrescences and no grossly normal ovarian parenchyma is identified. . Spa Director/Finance sections are submitted as follows: A1: Left fallopian tube. A2: Right fallopian tube. A3-A6: Ovary with cyst wall. . B. Received in formalin with two identifiers and cervix 12 o'clock stitch (label difficult to read), is an incised circular fragment of cervix with a suture designating 12 o'clock per the requisition and the incision located at 6 o'clock (reapproximated to measure 1.9 cm from 12 to 6, 1.7 cm from 3 to 9, 0.6 cm thick) with choe finely granular ectocervix. The endocervical margin is inked orange while the remaining stromal margins are inked blue. The specimen is radially sectioned and submitted entirely as follows: B1: 12 to 3. B2: 3 to 6. B3: 6 to 9. B4: 9 to 12. ([id number]) /[facility] 09/09/[address] [place] [address] . 01 Pathologist provided ICD-10: D27.0 . 01 CPT . 15733, 80975, M88523 Performed at: [address], [place], [place] [id number] MD Frank Pittman MD Phone: [phone]
--- NOTE | 2024-09-08 09:13 | PM.GYNHP.1 ---
History of Present Illness History of Present Illness Narrative: Augusta Malik is a 48 year old female 1 para 1 with DUNIA 2 of the cervix and a complex right ovarian mass. She presents today for a laparoscopic removal of the right ovarian mass and a LEEP cone biopsy of the cervix. [facility] Medical History Atypical ductal hyperplasia of breast (11/25/23) Abnormal Pap smear of vagina (10/24/17) Abnormal mammogram (08/24/10) Breast mass, right GERD (gastroesophageal reflux disease) Surgical History S/P breast biopsy, left (12/24/23) History of inguinal hernia repair History of third molar tooth extraction (1993) Family History (Updated 07/24/24 @ 16:21 by Sherlyn Kitchen CMA) Mother Age: 76 Barretts esophagus Melanoma Osteopenia Father Age: 84 Prostate cancer Aunt Breast cancer Grandmother Mouth cancer Grandfather Pancreatic cancer Grandmother Multiple myeloma Grandfather Heart attack Osteoporosis Social History (Updated 07/24/24 @ 16:52 by Sherlyn Kitchen CMA) marital status: number of children: 1 household members: spouse and children lives independently: Yes caregiver/support person: No housing: house pets and animals: Yes education level: master's degree occupational status: employed current occupational exposures/hazards: No special diony needs: No travel history: over 6 months ago leisure activities: art and other other: Cooking seatbelt use: always helmet use: Yes water heater temp set < 120 deg: Yes working smoke detector in home: Yes fire extinguisher in home: Yes carbon monox detector in home: Yes firearms in home: No do you feel safe at home: Yes in current or past relationships, have you been: other second hand exposure: No alcohol intake: current substance use type: does not use during the past year weight has: remained stable well-balanced diet: daily or most days daily servings fruits/ve-1 caffeine: Yes eating out: 1-3 times/week Type(s) of exercise: walking and yoga frequency: 3-4 times per week duration: 15-30 minutes/day Meds Home Medications and Allergies Home Medications Medication Instructions Recorded Confirmed Type CA PANTOTHENATE/CHOLINE/FE/I ##0 06/19/11 07/24/24 History (#VITAMINS & MINERALS SUPPLEMENT 480 ML) levonorgestrel 21 mcg/24 hr (up to 52 mg INTRAU ##0 09/02/16 07/24/24 History 8 years) 52 mg intrauterine device (Mirena) loratadine 10 mg capsule 10 mg PO DAILY 09/22/18 09/08/24 History acetaminophen 500 mg capsule 1,000 mg (2 x 500 mg) PO Q6H PRN 12/24/23 09/08/24 Rx pain #60 caps ibuprofen 200 mg tablet 400 mg (2 x 200 mg) PO Q6H #60 tabs 12/24/23 07/24/24 Rx tramadol 50 mg tablet 50 mg PO Q6H PRN pain #15 tabs 12/24/23 09/08/24 Rx levothyroxine 75 mcg tablet 75 mcg PO DAILY #30 tabs 07/31/24 09/08/24 Rx tamoxifen 10 mg tablet 5 mg PO DAILY 09/01/24 09/08/24 History valacyclovir 500 mg tablet 500 mg PO BID #10 tabs 09/05/24 Rx Allergies Allergy/AdvReac Type Severity Reaction Status Date / Time rofecoxib [ROFECOXIB] Allergy Severe Hives Verified 09/08/24 09:12 Sulfa (Sulfonamide Allergy Severe Hives Verified 09/08/24 09:12 Antibiotics) [SULFA (SULFONAMIDE ANTIBIOTICS)] Exam Narrative Exam Narrative: HEENT: No thyromegaly, no anterior cervical or supraclavicular lymphadenopathy. Lungs:Clear to auscultation bilaterally, no wheezes. Cardiovascular: Regular rate and rhythm, no murmurs, rubs, or gallops. Abdomen: No scars. No hepatosplenomegaly. No masses palpable. External genitalia: Normal Vagina: Normal Cervix: Normal. IUD strings visible. Bimanual exam: 7 Week size anteverted uterus. Mobile. Extremities: No edema Assessment & Plan Assessment & Plan narrative: Assessment: 48-year-old 1 para 1 with bilateral ovarian cysts, and DUNIA 2 of the cervix Desires sterilization Mirena IUD in place Plan: Laparoscopic removal of bilateral ovarian cysts, bilateral salpingectomy, removal of Mirena IUD, and LEEP cone biopsy of the cervix. The risks, benefits, and alternatives to the procedure were explained to the patient. The risks including bleeding, infection, injury to the bowel, bladder, or ureters. She understands all of these risks and agrees to proceed. A full par Q was held and consent form was signed. Patient understands that there is a possibility of removal of the right ovary. Time-Based Coding :: [TOTAL MINUTES] spent with patient and on the chart (including review of chart, obtaining history, exam, reviewing outside data, placing orders, documenting exam and treatment plan, and counseling patient) on [DATE].
[2024-09-08] MEDS: LACTATED RINGERS 1,000 ML 42 ML IV ×2 (09:14→12:07)
--- NOTE | 2024-09-08 09:14 | PM.PREOP ---
Pre-operative Note Interval Note History & Physical reviewed/Exam performed by Physician: Yes Changes to H&P: No H&P completed within 30 days and has changed as indicated here:: 09/08/24
--- NOTE | 2024-09-08 09:33 | SUR.OPER ---
Lithotomy on padded OR bed, head on pillow, arms secured on padded arm boards at <90 degrees abduction. Legs secured in padded yellow fins stirrups.
[2024-09-08] MEDS: CEFAZOLIN 2 GM/100 ML PREMIX 100 ML IV (10:48)
[2024-09-08] MEDS: BUPIVACAINE 0.5% W/ EPI (PF) 30 ML VIAL INJ (11:04)
[2024-09-08] MEDS: POTASSIUM IODIDE/IODINE 473 ML SOLUTION TOP (11:43)
--- NOTE | 2024-09-08 11:46 | PATH_ITS ---
Note [facility] Accession Number: [id number] TESTS RESULT FLAG UNITS REF RANGE LAB Clinician Provided Cytology Information No. of containers..01 Other (Miscellaneous) Source: RIGHT OVARIAN CYST FLUID DIAGNOSIS: RIGHT OVARIAN CYST FLUID NEGATIVE FOR MALIGNANT CELLS. THIS INTERPRETATION INCLUDES EVALUATION OF A CELL BLOCK. Pathologist ICD10: N83.291 Signed out by: Karen Robins DO, Pathologist NPI- [id number] Performed by: Bayron Rosario, Cryptologic Technician Operator/Analyst ([facility]) Gross description: 21 CC, YELLOW, HAZY RECEIVED: FRESH IN BLUE CAP CONTAINER.VO /VDU 09/11/2024 0845 Local FLAG LEGEND: L-Low Normal,H-High Normal,LL-Alert Low,HH-Alert High <-Panic Low,>-Panic High,A-Abnormal,AA-Critical Abnormal Performed at: 01 =Z [facility] [address], [place] [address] Frank Pittman MD, Performed at: [address] [facility] [address], [place], [place] [id number] MD Frank Pittman MD Phone: [phone]
--- NOTE | 2024-09-08 11:57 | PM.GYNOP.1 ---
Operative Date/Time/Diagnoses Date of procedure: 09/08/24 Time of procedure: 11:57 Pre-op diagnosis: Complex right ovarian cyst Sterilization DUNIA 2 of cervix Mirena IUD in place Post-op diagnosis: same Procedure & Clinicians Procedure: Procedures Operation Date: 09/08/24 10:00 Actual Procedure Side Surgeon p Laparoscopic Removal of bilateral fallopian tubes, right oophorectomy Valerie Mart MD s LEEP Procedure Valerie Mart MD Indications: 48 year old with a complex right ovarian cyst, desires sterilization, DUNIA 2 of the cervix by colposcopic biopsy, and Mirena IUD in place Surgeon: Valerie Mart Anesthesia Type: General and Local Operative Notes Findings: 6 cm complex right ovarian cyst Normal left ovary Normal tubes bilaterally Normal appendix Normal liver and gallbladder Right lower uterine segment fibroid approximately 3 cm Closure Type: primary Specimen(s): left tube, right tube & ovary and other (LEEP cone biopsy of the cervix, suture at 12 o'clock Cyst fluid to cytology) Applied: catheter (in/out during laparoscopy) Estimated blood loss (mL): 3 Blood products transfused: none Procedure in detail: After informed consent was obtained, the patient was taken to the operating room where she was placed in the dorsal supine position. After general endotracheal anesthesia was achieved, she was placed in the dorsal lithotomy position, and prepped and draped in the usual sterile fashion. A time-out was performed. A bivalve speculum was placed into the vagina. The Mirena IUD strings were grasped when it was removed without difficulty. a single-tooth tenaculum was placed on the anterior lip of the cervix. The cervical os was sequentially dilated until the Zumi uterine manipulator could pass easily into the endometrial cavity. The single-tooth tenaculum was removed from the anterior lip of the cervix. The bivalve speculum was removed from the vagina. Attention was then turned to the abdomen where 6 cc of 0.5% Marcaine with epinephrine were injected in the umbilical fold. A 5 mm incision was made. The Veress needle was placed into the peritoneal cavity, and its placement confirmed by aspiration and drop test. The abdominal cavity was insufflated with 3 L of CO2. The Veress needle was removed, and a 5 mm trocar was placed without difficulty. Two other incisions were made 4 cm lateral to the midline at the level of the umbilicus after 6 cc of 0.5% Marcaine with epinephrine were injected. Two 5 mm trocars were placed under direct visualization. The abdomen and pelvis were examined with the findings noted above. The right ovary was found to have a complex cyst without much normal ovary visible. A decision was made to remove the right tube and ovary. They were grasped with an atraumatic grasper. Using the power seal, the infundibulopelvic ligament on the right side was cauterized and cut. The mesosalpinx was cauterized and cut. The tube was amputated at the cornua. The tube and ovary were placed into the anterior cul-de-sacs. The left tube was grasped with an atraumatic grasper. Using the power seal, the mesosalpinx on the left side was cauterized and cut all the way down to the cornua of the uterus. The tube was amputated at the cornua. The tube was removed through the left trocar. 6 cc of 0.5% Marcaine with epinephrine were injected in the midline through previous Pfannenstiel incision. A 12 mm incision was made. A 12 mm trocar was placed under direct visualization. A small endobag was placed through the suprapubic trocar, the bag was opened, and the right tube and ovary were placed into the bag. The trocar was removed and the edges of the bag were brought up through the incision. Using a spinal needle the right ovarian cyst was decompressed and the fluid sent to cytology. The remainder of the ovary and right tube were brought up in the endobag through the suprapubic incision. The fascia on the suprapubic incision was closed with 0 Vicryl in a running fashion. The abdomen was re-insufflated. The pelvis and abdomen were examined then hemostasis was achieved. The instruments were removed from the abdomen. The CO2 was allowed to escape. Two simple interrupted sutures with 3-0 Vicryl were placed in the subcutaneous layer of the suprapubic incision. All of the incisions were closed with 4-0 Monocryl in a subcuticular fashion. Steri-Strips and dressings were placed. Attention was then turned to the vagina where the Zumi uterine manipulator was removed from the uterus. A plastic coated bivalve speculum was placed into the vagina. The cervix was dried with a sponge stick. Lugol solution was applied to the cervix. A plastic coated single-tooth tenaculum was placed on the anterior lip of the cervix. Using the 20 mm loop and settings at 80 cut and 60 cautery, a LEEP cone biopsy of the cervix was obtained to include all of the Lugol's light area of the cervix. The ball cautery was used for hemostasis. The specimen was tagged at 12 o'clock. The plastic coated single-tooth tenaculum was removed from the anterior lip of the cervix. The plastic coated bivalve speculum was removed from the vagina. Sponge, lap, and instrument counts were correct x2. The patient tolerated the procedure well, and was taken to PACU in stable condition. Complications: none Post-operative Condition: stable Disposition: PACU Plan for aftercare: Home after recovery
[2024-09-08] MEDS: OXYCODONE IR 5 MG TABLET PO (12:23)
[2024-09-08] MEDS: ONDANSETRON 4 MG/2 ML INJ IV ×2 (12:31→12:47)
[2024-09-08] MEDS: ACETAMINOPHEN IV 1,000 MG/100 ML VIAL 400 MG IV (12:52)
== END 2024-09-08 13:35 | disposition home or self-care (01) ==
PROVIDERS: PCP Family Medicine; Referring Provider Obstetrics & Gynecology; Visit Provider Obstetrics & Gynecology
PROC: (CPT 58661; principal; 2024-09-08 10:00)
PROC: 0UBC7ZZ Excision of Cervix, Via Natural or Artificial Opening (ICD-10-PCS; CPT 57522; 2024-09-08 10:00)
DX: D27.0 Benign neoplasm of right ovary (principal); Z30.432 Encounter for removal of intrauterine contraceptive device; Z30.2 Encounter for sterilization; N87.1 Moderate cervical dysplasia; N87.0 Mild cervical dysplasia
CPT/HCPCS: 58661; 57522; 81025; J0131; J0330; J0690; J1100; J1885; J2250; J2405; J2704; J3010; J3490

== ENCOUNTER → 2024-10-04 15:22 | Outpatient (CLI) | payer OTHER, SELFPAY ==
[2024-10-04 16:44] LABS: Free T4, Direct Thyroxine 1.26 ng/dL (0.78-2.19)
== END ==
PROVIDERS: PCP Family Medicine; Referring Provider Obstetrics & Gynecology; Visit Provider Obstetrics & Gynecology
DX: E03.9 Hypothyroidism, unspecified (principal)
CPT/HCPCS: 36415; 84439

== ENCOUNTER → 2024-10-13 17:20 | Outpatient (CLI) | payer OTHER, SELFPAY ==
--- NOTE | 2024-10-13 17:21 | DI.MG.S_ITS ---
MM screening mammo BI: 10/13/2024. BI-RADS: 2 CLINICAL: 48-year old female for bilateral screening mammogram. Tyrer-Cuzick lifetime risk of 43.6%. No personal or first-degree family history of breast cancer. The patient had prior bilateral breast biopsies. 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 PRIOR EXAMS 05/11/2024, 09/27/2023, 04/16/2023, 09/24/2022, 09/14/2022, 12/10/2021, 11/24/2021, 11/14/2021, 06/12/2021, 11/14/2020, 05/24/2020, 11/23/2019, 06/08/2019, 05/19/2019, 04/04/2018. MAMMOGRAPHY TECHNIQUE: 2D and 3D (tomosynthesis) digital mammographic views obtained, with additional images as needed for full coverage. Current study was also evaluated with a Computer Aided Detection (CAD) system. DENSITY D. The breasts are extremely dense, which lowers the sensitivity of mammography. MAMMOGRAPHY FINDINGS Right: Biopsy marker present on the right. There are no suspicious masses, calcifications, or other findings in the breast. Left: Biopsy markers present on the left. There are no suspicious masses, calcifications, or other findings in the breast. IMPRESSION: * No evidence of malignancy with benign findings. RECOMMENDATIONS Bilateral * According to the Tyrer-Cuzick Risk Assessment Model, based on the information provided your patient has a greater than 20% lifetime risk for developing breast cancer. Consider supplemental screening with breast MRI and participation in a high risk screening program. * Annual screening mammography. OVERALL ASSESSMENT CATEGORY BI-RADS-2: Benign. The [employer] recommends annual screening mammography beginning at age 40 for women with average risk of breast cancer. ELECTRONICALLY SIGNED: Cyrus Madison M.D. on 10/17/2024 at 08:20:36 AM PT Interpreting Station ID: [id number]
== END ==
LOC: MAMMO 17:21
PROVIDERS: PCP Family Medicine; Referring Provider Student in an Organized Health Care Education/Training Program; Visit Provider Student in an Organized Health Care Education/Training Program
DX: Z12.31 Encounter for screening mammogram for malignant neoplasm of breast (principal); R92.343 Mammographic extreme density, bilateral breasts
CPT/HCPCS: 77063; 77067

== ENCOUNTER → 2024-11-09 10:43 | Outpatient (CLI) | payer OTHER, SELFPAY ==
[2024-11-09 12:34] LABS: Appearance Urine UA CLEAR; Bilirubin Urine UA NEGATIVE (NEGATIVE); Color Urine UA YELLOW; Glucose Urine UA NEGATIVE (Negative); Ketones Urine UA NEGATIVE (NEGATIVE); Leukocyte Esterase Urine UA 1+ (NEGATIVE); Nitrite Urine UA NEGATIVE (Negative); Occult Blood Urine UA NEGATIVE (Negative); Protein Urine UA NEGATIVE (Negative); Specific Gravity Urine UA <=1.005 (1.000-1.035); Urobilinogen Urine UA 0.2 E.U./dL (0.2)
[2024-11-09 12:38] LABS: pH Urine UA 6.5 (4.5-8.0)
[2024-11-09 12:39] LABS: Culture Indicated Urine Specimen Cultured
== END ==
PROVIDERS: PCP Family Medicine; Referring Provider Family Medicine; Visit Provider Family Medicine
DX: R39.9 Unspecified symptoms and signs involving the genitourinary system (principal)
CPT/HCPCS: 81001; 87086